=== PATIENT | male | born 1960 | race African-American/Black ===

== ENCOUNTER 2024-11-08 18:20 | Inpatient (IN) | payer OTHER ==
[~2024-11-08] VITALS: Ht 180.3 cm; Wt 94.3 kg
[2024-11-08] MEDS: MORPHINE SULFATE 4 MG/ML INJ (FOR IV/IM USE) IV STA (19:47)
[2024-11-08 20:37] LABS: BASOPHILS % 0.4 % (0.0-2.0); EOSINOPHILS % 0.1 % (0.0-5.0); HEMATOCRIT. 51.4 % (42.0-52.0); HEMOGLOBIN. 16.5 g/dL (14.0-18.0); LYMPHOCYTES % 13.9 % (20.0-50.0); MEAN CORPUSCULAR HEMOGLOBIN 30.1 pg (28.0-32.0); MEAN CORPUSCULAR HGB CONC 32.2 g/dL (31.0-37.0); MEAN CORPUSCULAR VOLUME 93.6 fL (80.0-94.0); MEAN PLATELET VOLUME 8.6 fl (7.4-10.4); MONOCYTES % 9.6 % (2.0-8.0); PLATELET 200 x1000/uL (130-400); RED BLOOD CELL COUNT 5.49 mill/uL (4.7-6.1); RED CELL DISTRIBUTION WIDTH 17.1 % (11.6-14.6); WHITE BLOOD COUNT 8.1 x1000/uL (4.5-11.0)
[2024-11-08 20:45] LABS: POTASSIUM 4.6 mEq/L (3.5-5.1)
[2024-11-08 20:46] LABS: CALCIUM 9.8 mg/dL (8.7-10.4); INR 1.2; PROTHROMBIN TIME 12.9 sec (9.6-11.0)
[2024-11-08 20:50] LABS: CREATININE 1.9 mg/dL (0.6-1.3)
[2024-11-08] MEDS: MORPHINE SULFATE 4 MG/ML INJ (FOR IV/IM USE) IV ONE (22:13)
[2024-11-09] VITALS (7 sets, daily range): BP systolic 103–119; BP diastolic 71–80; PULSE 95–98; RESP 18–26; TEMP 36.114–37.2252; O2SAT 90–98
[2024-11-09] MEDS ORDERED: DEXTROSE 50% WATER 50ML SYRINGE IV PRN (04:15)
[2024-11-09] MEDS: MORPHINE SULFATE 2 MG/ML INJ (NOT FOR IM USE) IV PRN (05:10)
[2024-11-09] MEDS: BLOOD SUGAR DIAGNOSTIC STRIP TEST SCH (06:49)
[2024-11-09] MEDS: INSULIN LISPRO 100 UNITS/ML SUBCUT SCH (06:49)
[2024-11-09] MEDS: ENOXAPARIN 40MG/0.4ML SYR SUBCUT SCH (08:22)
[2024-11-09 11:34] LABS: BASOPHILS % 0.3 % (0.0-2.0); DIFFERENTIAL COMMENT 0; HEMATOCRIT. 54.5 % (42.0-52.0); HEMOGLOBIN. 17.1 g/dL (14.0-18.0); LYMPHOCYTES % 13.8 % (20.0-50.0); MEAN CORPUSCULAR HEMOGLOBIN 29.4 pg (28.0-32.0); MEAN CORPUSCULAR HGB CONC 31.3 g/dL (31.0-37.0); MEAN CORPUSCULAR VOLUME 93.9 fL (80.0-94.0); MEAN PLATELET VOLUME 8.3 fl (7.4-10.4); MONOCYTES % 13.4 % (2.0-8.0); NEUTROPHILS % 72.5 % (40.0-76.0); PLATELET 211 x1000/uL (130-400); RED BLOOD CELL COUNT 5.81 mill/uL (4.7-6.1); RED CELL DISTRIBUTION WIDTH 17.1 % (11.6-14.6); WHITE BLOOD COUNT 7.3 x1000/uL (4.5-11.0)
[2024-11-09 11:36] LABS: CARBON DIOXIDE 22 mEq/L (21-32); CHLORIDE 101 mEq/L (98-107); POTASSIUM 4.9 mEq/L (3.5-5.1); SODIUM 136 mEq/L (136-145)
[2024-11-09 11:37] LABS: CALCIUM 9.8 mg/dL (8.7-10.4)
[2024-11-09 11:41] LABS: CREATININE 2.3 mg/dL (0.6-1.3); GLUCOSE 165 mg/dL (70-105)
[2024-11-09 11:42] LABS: LDL CHOLESTEROL 102 mg/dL (5-100); TRIGLYCERIDE 77 mg/dL (0-150); UREA NITROGEN BLOOD 55 mg/dL (9-23)
[2024-11-09 11:43] LABS: ALANINE AMINOTRANSFERASE 20 IU/L (10-49); ASPARTATE AMINOTRANSFERASE 28 IU/L (<34); CHOLESTEROL 172 mg/dL (<200); HDL CHOLESTEROL 46 mg/dL (>55)
[2024-11-09 11:44] LABS: BILIRUBIN TOTAL 4.9 mg/dL (0.1-1.0); PROTEIN TOTAL 7.6 g/dL (6.0-8.3)
[2024-11-09] MEDS: FUROSEMIDE 40MG/4ML VIAL IVP NR ×2 (13:46→21:13)
[2024-11-09] MEDS: FUROSEMIDE 40MG/4ML VIAL IVP SCH (17:25)
[2024-11-09] MEDS: IPRATROPIUM/ALBUTEROL 0.5-3(2.5)MG/3ML NEB HHN PRN (20:47)
[2024-11-09] MEDS ORDERED: NALOXONE HCL 0.4MG/ML VIAL IV PRN (21:00)
[2024-11-10] VITALS (7 sets, daily range): BP systolic 103–117; BP diastolic 70–83; PULSE 65–97; RESP 18–24; TEMP 36.114–36.61404; O2SAT 75–100
[2024-11-10 07:56] LABS: CLARITY URINE CLEAR (CLEAR); COLOR URINE DARK YELLOW (YELLOW); GLUCOSE URINE NEGATIVE (NEGATIVE); KETONES URINE NEGATIVE (NEGATIVE); LEUKOCYTE ESTERASE URINE NEGATIVE (NEGATIVE); NITRITE URINE NEGATIVE (NEGATIVE); OCCULT BLOOD URINE NEGATIVE (NEGATIVE); PROTEIN URINE NEGATIVE (NEGATIVE); SPECIFIC GRAVITY URINE 1.014 (1.005-1.030)
[2024-11-10 08:14] LABS: *AMPHETAMINES SCREEN URINE NEGATIVE (NEGATIVE)
[2024-11-10 08:15] LABS: *BARBITURATES SCREEN URINE NEGATIVE (NEGATIVE); *BENZODIAZEPINES SCREEN URINE NEGATIVE (NEGATIVE); *COCAINE SCREEN URINE NEGATIVE (NEGATIVE); CANNABINOID URINE SCREEN NEGATIVE (NEGATIVE); ECSTASY MDMA SCREEN URINE NEGATIVE (NEGATIVE); METHADONE URINE SCREEN NEGATIVE (NEGATIVE); OPIATES URINE SCREEN PRESUMPTIVE POSITIVE (NEGATIVE); PHENCYCLIDINE URINE SCREEN NEGATIVE (NEGATIVE)
[2024-11-10 08:53] LABS: CHLORIDE 100 mEq/L (98-107); POTASSIUM 4.6 mEq/L (3.5-5.1); SODIUM 136 mEq/L (136-145)
[2024-11-10 08:54] LABS: CALCIUM 9.5 mg/dL (8.7-10.4); CARBON DIOXIDE 22 mEq/L (21-32)
[2024-11-10 08:59] LABS: CREATININE 2.3 mg/dL (0.6-1.3); GLUCOSE 155 mg/dL (70-105); UREA NITROGEN BLOOD 69 mg/dL (9-23)
[2024-11-10] MEDS: GUAIFENESIN-DM 200MG-20MG/10ML UDC PO PRN (15:06)
[2024-11-11] VITALS (20 sets, daily range): BP systolic 104–130; BP diastolic 73–100; PULSE 73–133; RESP 12–26; TEMP 36.114–36.61404; O2SAT 90–100
[2024-11-11] MEDS: HYDROCODONE/ACETAMINOPHEN 5/325MG TABLET PO PRN (01:40)
[2024-11-11 08:47] LABS: CALCIUM 9.6 mg/dL (8.7-10.4); CHLORIDE 100 mEq/L (98-107); POTASSIUM 5.2 mEq/L (3.5-5.1); SODIUM 137 mEq/L (136-145)
[2024-11-11 08:48] LABS: CARBON DIOXIDE 25 mEq/L (21-32)
[2024-11-11 08:53] LABS: CREATININE 1.8 mg/dL (0.6-1.3); GLUCOSE 117 mg/dL (70-105); UREA NITROGEN BLOOD 76 mg/dL (9-23)
[2024-11-11] MEDS ORDERED: POLYMYXIN B SULFATE 500000 UNITS/VIAL ONE (10:15)
[2024-11-11] MEDS ORDERED: VANCOMYCIN HCL 1GM VIAL ONE ×2 (10:15→12:48)
[2024-11-11] MEDS ORDERED: TRANEXAMIC ACID 1000MG PREMIX 200 ML IV ONE (10:15)
[2024-11-11] MEDS ORDERED: LIDOCAINE HCL/EPINEPHRINE 1%-EPI 1:100,000 20ML VIAL ONE (10:15)
[2024-11-11] MEDS ORDERED: BUPIVACAINE HCL/PF 0.5% (5MG/ML) 10ML ONE (10:16)
[2024-11-11] MEDS ORDERED: ACETAMINOPHEN 1000MG/100ML 100 ML IV ONE (10:16)
[2024-11-11] MEDS: INSULIN REGULAR (HUMULIN R) 1000UNITS/10ML VIAL IV SCH (10:22)
[2024-11-11] MEDS: DEXTROSE 50% WATER 50ML SYRINGE IV SCH (10:24)
[2024-11-11 12:15] LABS: BG BASE EXCESS -1.3 mmol/L (-2.0-3.0); BG CARBOXYHEMOGLOBIN 1.8 % (0.5-1.5); BG DEOXYHEMOGLOBIN 5.1 % (0.0-5.0); BG FRACTION INSPIRED OXYGEN 36; BG HCO3 ACT 23.5 mmol/L (21.0-28.0); BG METHEMOGLOBIN 0.1 % (0.5-1.5); BG OXYGEN SATURATION 94.8 % (94.0-98.0); BG PCO2 39.7 mmHg (35.0-48.0); BG PO2 73.2 mmHg (83.0-108.0); BG SAMPLE SITE LEFT RADIAL; BG TOTAL HEMOGLOBIN 16.1 g/dL (13.5-17.5); BG VENT MODE NASAL CANNULA
[2024-11-11 12:35] LABS: POTASSIUM 4.2 mEq/L (3.5-5.1)
[2024-11-11] MEDS ORDERED: PROPOFOL 200MG/20ML VIAL IV ONE (13:49)
[2024-11-11] MEDS ORDERED: FENTANYL CITRATE/PF 50MCG/ML 2ML VIAL ONE ×2 (13:49→15:28)
[2024-11-11] MEDS ORDERED: SUCCINYLCHOLINE CHLORIDE 200MG/10ML IV ONE (14:28)
[2024-11-11] MEDS ORDERED: ROCURONIUM BROMIDE 10MG/ML VIAL 5ML IV ONE (14:28)
[2024-11-11] MEDS ORDERED: DEXTROSE 50% WATER 50ML SYRINGE IV ONE (14:38)
[2024-11-11] MEDS ORDERED: DEXAMETHASONE 4MG/ML 1ML VIAL ONE (14:54)
[2024-11-11] MEDS ORDERED: MIDAZOLAM HCL 2 MG/2 ML VIAL ONE (14:54)
[2024-11-11] MEDS ORDERED: ONDANSETRON HCL 4MG/2ML INJ ONE (14:54)
[2024-11-11] MEDS ORDERED: METOCLOPRAMIDE HCL 10MG/2ML VIAL ONE (14:54)
[2024-11-11] MEDS ORDERED: SUGAMMADEX SODIUM 200MG/2ML VIAL IV ONE ×2 (14:55→16:03)
[2024-11-11] MEDS ORDERED: EPINEPHRINE 1:1000 1 MG/ML AMP ONE (14:55)
[2024-11-11] MEDS ORDERED: CALCIUM CHLORIDE 1GM/10ML SYR IV ONE ×2 (14:55→16:21)
[2024-11-11] MEDS ORDERED: HYDROCODONE/ACETAMINOPHEN 5/325MG TABLET PO PRN (16:00)
[2024-11-11] MEDS ORDERED: ONDANSETRON HCL 4MG/2ML INJ IV PRN ×2 (16:00→16:30)
[2024-11-11] MEDS: ALBUMIN HUMAN 12.5G/250ML (5%) IV NR (16:45)
[2024-11-11] MEDS ORDERED: IPRATROPIUM/ALBUTEROL 0.5-3(2.5)MG/3ML NEB HHN NR (16:45)
[2024-11-11] MEDS: NOREPINEPHRINE 8MG/250ML PMX 250ML IV PRN (17:56)
[2024-11-11] MEDS: CEFAZOLIN 1000MG PREMIX 50 ML IV SCH (18:00)
[2024-11-11 18:11] LABS: BG BASE EXCESS -3.4 mmol/L (-2.0-3.0); BG CARBOXYHEMOGLOBIN 1.8 % (0.5-1.5); BG DEOXYHEMOGLOBIN 5.3 % (0.0-5.0); BG FRACTION INSPIRED OXYGEN 40; BG METHEMOGLOBIN 0.2 % (0.5-1.5); BG OXYGEN SATURATION 94.6 % (94.0-98.0); BG OXYHEMOGLOBIN 92.7 % (94.0-98.0); BG PH 7.317 (7.350-7.450); BG PO2 76.7 mmHg (83.0-108.0); BG SAMPLE SITE LEFT RADIAL; BG TOTAL HEMOGLOBIN 16.1 g/dL (13.5-17.5); BG VENT MODE NASAL CANNULA
[2024-11-11] MEDS: SODIUM BICARBONATE 8.4% 50MEQ/50ML SYR IV NR (18:48)
[2024-11-11] MEDS: HYDROMORPHONE HCL/PF 1MG/ML INJ IV PRN (21:33)
[2024-11-11 22:17] LABS: POTASSIUM 4.7 mEq/L (3.5-5.1)
[2024-11-11 22:18] LABS: CALCIUM 10.3 mg/dL (8.7-10.4)
[2024-11-11 22:21] LABS: HEMATOCRIT 53.3 % (42.0-52.0); HEMOGLOBIN 16.5 g/dL (14.0-18.0); MEAN CORPUSCULAR HEMOGLOBIN 29.5 pg (28.0-32.0); MEAN CORPUSCULAR VOLUME 95.2 fL (80.0-94.0); PLATELET 172 x1000/uL (130-400); RED CELL DISTRIBUTION WIDTH 17.6 % (11.6-14.6); WHITE BLOOD COUNT 6.3 x1000/uL (4.5-11.0)
[2024-11-11 22:23] LABS: CREATININE 1.8 mg/dL (0.6-1.3)
[2024-11-12] VITALS (43 sets, daily range): BP systolic 100–129; BP diastolic 71–99; PULSE 85–179; RESP 9–33; TEMP 36.28068–36.83628; O2SAT 87–99
[2024-11-12] MEDS: DILTIAZEM HCL 5MG/ML 5ML VIAL IV NR (03:10)
[2024-11-12 06:23] LABS: HEMATOCRIT. 52.4 % (42.0-52.0); HEMOGLOBIN. 16.5 g/dL (14.0-18.0); MEAN CORPUSCULAR HGB CONC 31.6 g/dL (31.0-37.0); MEAN CORPUSCULAR VOLUME 95.1 fL (80.0-94.0); MEAN PLATELET VOLUME 8.5 fl (7.4-10.4); PLATELET 181 x1000/uL (130-400); RED BLOOD CELL COUNT 5.51 mill/uL (4.7-6.1); RED CELL DISTRIBUTION WIDTH 17.1 % (11.6-14.6); WHITE BLOOD COUNT 6.1 x1000/uL (4.5-11.0)
[2024-11-12 08:02] LABS: DIFFERENTIAL COMMENT 1
[2024-11-12] MEDS: ASPIRIN 81MG TABLET PO SCH (09:00)
[2024-11-12] MEDS: FUROSEMIDE 40MG/4ML VIAL IVP SCH (10:30)
[2024-11-12 11:21] LABS: ANISOCYTOSIS 1+; PLATELET ESTIMATE NORMAL
[2024-11-12] MEDS: HYDROCODONE/ACETAMINOPHEN 5/325MG TABLET PO PRN (16:56)
[2024-11-13] VITALS: BP 109/74; PULSE 80; RESP 18; TEMP 36.28068; O2SAT 96
[2024-11-13 04:00] VITALS: BP 117/70; PULSE 78; RESP 20; TEMP 36.114; O2SAT 95
[2024-11-13 07:39] LABS: HEMATOCRIT. 49.4 % (42.0-52.0); HEMOGLOBIN. 15.8 g/dL (14.0-18.0); MEAN CORPUSCULAR HEMOGLOBIN 30.1 pg (28.0-32.0); MEAN CORPUSCULAR HGB CONC 31.9 g/dL (31.0-37.0); MEAN CORPUSCULAR VOLUME 94.3 fL (80.0-94.0); MEAN PLATELET VOLUME 8.8 fl (7.4-10.4); PLATELET 209 x1000/uL (130-400); RED BLOOD CELL COUNT 5.24 mill/uL (4.7-6.1); RED CELL DISTRIBUTION WIDTH 17.1 % (11.6-14.6); WHITE BLOOD COUNT 7.5 x1000/uL (4.5-11.0)
[2024-11-13 08:00] VITALS: BP 108/80; PULSE 94; RESP 20; TEMP 36.50292; O2SAT 97
[2024-11-13 08:09] LABS: DIFFERENTIAL COMMENT 1
[2024-11-13 12:00] VITALS: BP 106/79; PULSE 100; RESP 20; TEMP 36.3918; O2SAT 95
[2024-11-13 16:00] VITALS: BP 120/81; PULSE 98; RESP 20; TEMP 36.50292; O2SAT 94
[2024-11-13 17:51] LABS: PLATELET ESTIMATE NORMAL
[2024-11-13 20:00] VITALS: BP 105/77; PULSE 101; RESP 18; TEMP 36.55848; O2SAT 98
[2024-11-14] VITALS: BP_SYST 109; BP_SYST 118; BP_DIAS 75; BP_DIAS 76; PULSE 101; PULSE 97; RESP 18; RESP 21; TEMP 36.33624; TEMP 36.89184; O2SAT 98; O2SAT 99
[2024-11-14 04:00] VITALS: BP 112/79; PULSE 93; RESP 22; TEMP 36.22512; O2SAT 96
[2024-11-14 06:26] LABS: BASOPHILS % 0.1 % (0.0-2.0); EOSINOPHILS % 0.1 % (0.0-5.0); HEMOGLOBIN. 14.9 g/dL (14.0-18.0); LYMPHOCYTES % 12.3 % (20.0-50.0); MEAN CORPUSCULAR HEMOGLOBIN 30.1 pg (28.0-32.0); MEAN CORPUSCULAR HGB CONC 32.3 g/dL (31.0-37.0); MEAN PLATELET VOLUME 8.4 fl (7.4-10.4); MONOCYTES % 14.7 % (2.0-8.0); NEUTROPHILS % 72.8 % (40.0-76.0); PLATELET 205 x1000/uL (130-400); RED BLOOD CELL COUNT 4.95 mill/uL (4.7-6.1); RED CELL DISTRIBUTION WIDTH 16.6 % (11.6-14.6); WHITE BLOOD COUNT 8.8 x1000/uL (4.5-11.0)
[2024-11-14 08:00] VITALS: BP 109/79; PULSE 92; RESP 18; TEMP 36.00288; O2SAT 95
[2024-11-14 12:00] VITALS: BP 110/79; PULSE 103; RESP 20; TEMP 36.05844; O2SAT 96
[2024-11-14 16:00] VITALS: BP 104/72; PULSE 95; RESP 20; TEMP 36.05844; O2SAT 95
[2024-11-14 20:00] VITALS: BP 108/70; PULSE 99; RESP 20; TEMP 36.78072; O2SAT 96
[2024-11-15] VITALS: BP 118/75; PULSE 101; RESP 18; TEMP 36.89184; O2SAT 98
[2024-11-15 04:00] VITALS: BP 108/77; PULSE 105; RESP 18; TEMP 36.3918; O2SAT 99
[2024-11-15 08:00] VITALS: BP 110/76; PULSE 82; RESP 20; TEMP 37.00296; O2SAT 100
[2024-11-15 12:00] VITALS: BP 112/84; PULSE 99; RESP 18; TEMP 36.28068; O2SAT 100
[2024-11-15] MEDS ORDERED: HYDR-4001 MT (13:57)
[2024-11-15] MEDS ORDERED: APIX2.5T MT (13:59)
[2024-11-15 16:00] VITALS: BP 125/89; PULSE 102; RESP 20; TEMP 36.55848; O2SAT 93
[2024-11-15 20:00] VITALS: BP 107/77; PULSE 107; RESP 19; TEMP 36.6696; O2SAT 98
[2024-11-16] VITALS (8 sets, daily range): BP systolic 110–166; BP diastolic 72–94; PULSE 76–109; RESP 18–20; TEMP 36.44736–36.89184; O2SAT 94–100
[2024-11-16] MEDS: CLONIDINE 0.1MG TABLET PO PRN (17:25)
[2024-11-17] VITALS: BP 134/85; PULSE 89; RESP 20; TEMP 36.22512
[2024-11-17 04:00] VITALS: BP 114/85; PULSE 91; RESP 18; TEMP 36.3918; O2SAT 97
[2024-11-17 08:00] VITALS: BP 110/81; PULSE 97; RESP 17; TEMP 36.55848; O2SAT 100
[2024-11-17 12:00] VITALS: BP 109/88; PULSE 100; RESP 17; TEMP 36.61404; O2SAT 100
[2024-11-17] MEDS: HYDROCODONE/ACETAMINOPHEN 5/325MG TABLET PO PRN (12:15)
== END 2024-11-17 14:05 | disposition home health service (06) | DRG 521 ==
LOC: ER 18:20 → 7EST 23:01 → EDBEDREQ 23:02 → MICUNO 11-11 20:15 → 8WST 11-12 12:34
PROVIDERS: ADMIT Internal Medicine; ATTEND Internal Medicine
PROC: 0SRS0JZ Replacement of Left Hip Joint, Femoral Surface with Synthetic Substitute, Open Approach (ICD-10-PCS; principal; 2024-11-11)
DX: S72.092A Other fracture of head and neck of left femur, initial encounter for closed fracture (principal); I50.23 Acute on chronic systolic (congestive) heart failure; I13.0 Hypertensive heart and chronic kidney disease with heart failure and stage 1 through stage 4 chronic kidney disease, or unspecified chronic kidney disease; I31.39 Other pericardial effusion (noninflammatory); N17.9 Acute kidney failure, unspecified; J84.9 Interstitial pulmonary disease, unspecified; N18.9 Chronic kidney disease, unspecified; E11.22 Type 2 diabetes mellitus with diabetic chronic kidney disease; W18.39XA Other fall on same level, initial encounter; Y93.89 Activity, other specified; Y92.89 Other specified places as the place of occurrence of the external cause; Y99.8 Other external cause status
CPT/HCPCS: 36415; 36600; 71045; 72170; 73501; 73502; 80048; 80053; 80061; 80305; 81003; 82375; 82805; 82962; 83036; 83735; 84132; 85025; 85027; 86850; 86900; 88304; 88305; 88311; 93005; 93306; 93970; 94070; 94640; 94664; 94760; 97110; 97116; 97162; 97166; 97530; 97535; 98960; 99285; J0330; J0690; J1100; J1171; J1815; J1940; J2004; J2250; J2270; J2310; J2405; J2704; J2765; J3010; J3370; J3490; J7030; L1830; P9041; C1776; J0131